=== PATIENT | male | born 1985 | race Caucasian/White ===

== ENCOUNTER 2017-03-02 10:57 | Inpatient (IN) | payer MEDICARE, MEDICAID ==
[~2017-03-02] VITALS: Ht 175.3 cm; Wt 107.8 kg
--- NOTE | 2017-03-02 11:21 | NUR ---
PT C/O NON-RADIATING CHEST PAIN DESCRIBED TIGHTNESS AND PROVOKED WITH MOVEMENT OR HEAVY LIFTING. PT ALSO C/O BUQ ABD PAIN AND NAUSEA W/O VOMIT OR DIARRHEA. PT IS AAOX4, RESP EVEN AND UNLAOBRED, RA. C/O COUGH AND STS THAT HE ALWAYS HAS A COUGH. PT REPORTS QUITING SMOKING 2 WKS AGO. PT ALS REPORTS SORE THROAT AND STS THAT HIS TINSILS ARE SWOLLEN, UPON VISUAL INSPECTION, TONSILS NOTED TO BE SLIGHTLY SWOLLEN. PT PLACED ON CARBONIZER TESTER. EKG PERFORMED IN TRIAGE
--- NOTE | 2017-03-02 11:31 | NUR ---
DR ORR AT BEDSIDE FOR MSE
--- NOTE | 2017-03-02 11:41 | NUR ---
IMPROVEMENT RN AT BEDSIDE FOR BLOOD DRAW
--- NOTE | 2017-03-02 11:44 | NUR ---
RADIOLOGY AT BEDSIDE FOR PCXR
[2017-03-02 11:53] LABS: BASOPHIL % 0.6 % (0-2); PLATELET COUNT 285 x10^3mcL (130-400); RED CELL DISTRIBUTION WIDTH 14.5 % (11.5-14.5)
[2017-03-02] MEDS ORDERED: LANTUS SOLOS100 U/M1 (11:54)
[2017-03-02 12:03] LABS: CALCIUM 9.5 mg/dL (8.5-10.1); CARBON DIOXIDE 25.6 mmol/L (21-32); CHLORIDE SERUM 103 mmol/L (98-107); CREATININE SERUM 0.8 mg/dL (0.7-1.3); GFR1 > 60 mL/min; GLUCOSE SERUM 170 mg/dL (74-106); POTASSIUM SERUM 4.2 mmol/L (3.5-5.1); SODIUM SERUM 137 mmol/L (136-145)
[2017-03-02 12:05] LABS: ALBUMIN 4.3 g/dL (3.4-5.0); ALKALINE PHOSPHATASE 66 U/L (46-116); ALT/SGPT 120 U/L (16-63); AST/SGOT 42 U/L (15-37); BILIRUBIN TOTAL 0.82 mg/dL (0.20-1.00); TOTAL PROTEIN, SERUM 7.3 g/dL (6.4-8.2)
--- NOTE | 2017-03-02 13:05 | NUR ---
PT REMAINS IN STABLE CONDITION. RESP EVEN AND UNLABORED, RA. VS STABLE AND WNL, NAD NOTED.
--- NOTE | 2017-03-02 13:11 | NUR ---
REPORT GIVEN TO FABRICIO FRANCISCO IN [facility] FOR CONTINUITY OF CARE; AWAITING ADMIT ORDERS
--- NOTE | 2017-03-02 13:23 | NUR ---
2ND PAGE SENT BY MT FOR ADMIT ORDERS
--- NOTE | 2017-03-02 13:39 | NUR ---
PT TRANSFERED TO [facility] AT THIS TIME
[2017-03-02 13:56] VITALS: BP 120/72
[2017-03-02 13:56] LABS: MAGNESIUM 1.9 mg/dL (1.8-2.4); PHOSPHOROUS 3.8 mg/dL (2.5-4.9)
[2017-03-02 14:00] LABS: CHOLESTEROL/HDL RATIO 6.7
--- NOTE | 2017-03-02 14:00 | NUR ---
RECEIVED PT FROM ED VIA JONNY. ORIENTED PT TO ROOM AND SURROUNDINGS. IV NOTED TO LAC PATENT AND INTACT. TELE 12 PLACED ON PT READING NSR. INSTRUCTED PT ON THE USE OF CALL LIGHT FOR ASSISTANCE. ENDORSED PT TO PRIMARY NURSE FABRICIO
--- NOTE | 2017-03-02 14:02 | NUR ---
MEDICAL STUDENTS IN TO SPEAK WITH PATIENT. WANTS TO EAT, PAGED DR FLORES.
--- NOTE | 2017-03-02 14:03 | NUR ---
SPOKE WITH DR FLORES FOR DIET ORDER.
[2017-03-02 14:04] LABS: FREE T4 1.1 ng/dL (0.76-1.46); FREE THYROXINE INDEX 2.2 ug/dL (1.4-4.5); T4(THYROXINE) 6.5 ug/dL (4.7-13.3)
[2017-03-02 14:06] LABS: T3 TOTAL 1.01 ng/mL
--- NOTE | 2017-03-02 14:38 | NUR ---
SPOKE WITH PONCHO OHARA TO GIVE FOOD AND NOT WAIT UNTIL DINNER. SANDWICH, PUDDING, DRINK GIVEN.
--- NOTE | 2017-03-02 15:00 | NUR ---
Patient resting comfortable in bed, denies pain, NS @ 100ml/hr to LAC started as ordered, ice water offered, needs attended. Update POC and treatments patient verbalize understand.
--- NOTE | 2017-03-02 16:43 | NUR ---
DR RICE IN TO SEE PATIENT. FAMILY MEMBERS BEDSIDE.
--- NOTE | 2017-03-02 16:46 | NUR ---
PATIENT SIT UP IN BED NO COMPLAINTS, FAMILY MEMBERS AT BEDSIDE, DR. RICE SEEN PT AT THIS TIME DISCUSS TX WITH PATIENT AND ANSWER QUESTIONS. BS CHECK 168 NO COVERAGE ORDERED. IV INTACT, CALL LIGHT WITHIN REACH.
[2017-03-02 16:58] LABS: UA SPECIFIC GRAVITY 1.025 (1.005-1.035); microscopic required? YES; urine erythrocyte NEGATIVE (NEGATIVE)
--- NOTE | 2017-03-02 17:02 | NUR ---
STREP CULTURE COLLECTED INSTRUCTED BY DR RICE
[2017-03-02 17:20] LABS: AMPHETAMINE QUAL UR NONE DETECTED (NEG <=1000)
--- NOTE | 2017-03-02 17:45 | NUR ---
PATIENT EATING DINNER NO COMPLAINTS, MOM AND SISTER REMAIN AT BEDSIDE, COLCHICINE AND MOTRIN GIVEN ORDERED, NEEDS ANTICIPATED. CALL LIGHT WITHIN REACH.
--- NOTE | 2017-03-02 19:55 | NUR ---
PT RECIEVED AAO REG RESP NO SOB,V/S STABLE,IV INFUSING WELL WITH THE SITE PATENT AND INTACT,NO CHEST PAIN OR SOB REPORTED AT THIS TIME,BED IN THE LOW POSITION AND CALL AND WILL CONTINUE TO MONITOR.
[2017-03-02 22:13] VITALS: BP 139/93
[2017-03-03 04:41] LABS: BASOPHIL % 0.4 % (0-2); PLATELET COUNT 275 x10^3mcL (130-400); RED CELL DISTRIBUTION WIDTH 14.4 % (11.5-14.5)
[2017-03-03 04:45] LABS: CALCIUM 8.8 mg/dL (8.5-10.1); CARBON DIOXIDE 25.7 mmol/L (21-32); CHLORIDE SERUM 105 mmol/L (98-107); CREATININE SERUM 0.8 mg/dL (0.7-1.3); GFR1 > 60 mL/min; GLUCOSE SERUM 157 mg/dL (74-106); MAGNESIUM 2.1 mg/dL (1.8-2.4); PHOSPHOROUS 4.8 mg/dL (2.5-4.9); POTASSIUM SERUM 3.6 mmol/L (3.5-5.1); SODIUM SERUM 140 mmol/L (136-145)
[2017-03-03 06:03] VITALS: BP 117/70
--- NOTE | 2017-03-03 06:41 | NUR ---
PT HAD A RESTING NIGHT MADE COMFORTABLE IN BED,KEPT CLEAN AND DRY TO TOUCH AND WILL CONTINUE TO MONITOR.
[2017-03-03 07:55] VITALS: BP 120/74
[2017-03-03 13:45] VITALS: BP 135/82
[2017-03-03 14:00] VITALS: BP 135/95
--- NOTE | 2017-03-03 16:59 | NUR ---
PT WANT TO TAKE SHOWER WITH DR'S ORDER. CALLED AND MADE CATTLE EXAMINER AWARE PT IS OFF TELE FOR A SHORT TIME.
--- NOTE | 2017-03-03 19:06 | NUR ---
PT NO COMPLAIN OF PAIN. PT HAD SHOWER PER ORDER. PT BREATHING ON RA, EVEN, UNLABORED. IV SITE PATENT, INTACT. IVF INFUSING WELL.
--- NOTE | 2017-03-03 19:39 | NUR ---
PT RECIEVED AAO REG RESP NO SOB,V/S STABLE,ON TELE MONITOR AND IN NSR NO ECTOPY OR CHEST PAIN AT THIS TIME,IV INFUSING WELL WITH DWANYE SITE PATENT AND INTACT,BED IN THE LOW POSITION AND LOCKED AND WILL CONTINUE TO MONITOR.
[2017-03-03 21:24] VITALS: BP 129/95
[2017-03-04 05:24] VITALS: BP 103/62
--- NOTE | 2017-03-04 06:32 | NUR ---
PT HAD A RESTING NIGHT V/S STABLE,KEPT CLEAN AND DRY TO TOUCH AND WILL CONTINUE TO MONITOR.
--- NOTE | 2017-03-04 07:30 | NUR ---
RECEIVED THE PATIENT AWAKE AND ORIENTED TO PERSON, PLACE AND TIME. DENIED PAIN AT THIS TIME. TELE # 12 READS SINUS RHYTHMS. IVF NS VIA H/L TO RFA.
--- NOTE | 2017-03-04 09:07 | NUR ---
DR. TRACY AND THE TEAM WERE MAKING ROUND TO SEE THE PATIENT; THE CARE PLAN WAS INFORMED TO THE PATIENT AND THE PATIENT AGREED WITH THE PLAN.
[2017-03-04 09:50] VITALS: BP 110/56
[2017-03-04] MEDS ORDERED: LIPITOR40 MG PO (11:19)
[2017-03-04] MEDS ORDERED: COLCHICINE0.6 M1 PO (11:21)
[2017-03-04] MEDS ORDERED: MOT800 PO (11:22)
[2017-03-04 12:04] VITALS: BP 110/56
--- NOTE | 2017-03-04 13:25 | NUR ---
DISCHARGE INSTRUCTION AND PRESCRIPTION WERE EXPLAINED THOROUGHLY AND HANDED TO THE PATIENT. H/L WAS REMOVED WITH CATH INTACT. TELE WAS REMOVED AND RETURNED. ID BAND WAS REMOVED. THE PATIENT WAS ESCORTED TO THE DISCHARGE OFFICE IN STABLE CONDITION. ALL BELONGINGS WERE SENT HOME WITH THE PATIENT UPON DISCHARGE.
== END 2017-03-04 13:25 | disposition home or self-care (01) | DRG 314 ==
LOC: ED 10:57 → DU 12:41
PROVIDERS: Emergency Medicine; ADMIT Family Medicine
DX: I31.9 Disease of pericardium, unspecified (principal); N17.0 Acute kidney failure with tubular necrosis; E10.65 Type 1 diabetes mellitus with hyperglycemia; E10.51 Type 1 diabetes mellitus with diabetic peripheral angiopathy without gangrene; E78.5 Hyperlipidemia, unspecified; R80.8 Other proteinuria; G60.0 Hereditary motor and sensory neuropathy; E66.9 Obesity, unspecified; Z79.4 Long term (current) use of insulin; Z68.35 Body mass index [BMI] 35.0-35.9, adult
CPT/HCPCS: 80307; 82962; 83880; 84439; J0561; J1815; J1885; J7030; Q0092

== ENCOUNTER 2017-04-11 21:35 | Emergency (ER) | payer MEDICARE, MEDICAID ==
[~2017-04-11 21:35] MED LIST: COLCHICINE0.6 M1 PO; LANTUS SOLOS100 U/M1; LIPITOR40 MG PO; MOT800 PO
[2017-04-11 21:41] VITALS: BP 130/83
== END 2017-04-11 22:27 | disposition home or self-care (01) ==
LOC: ED 21:35
DX: L03.011 Cellulitis of right finger (principal); E11.9 Type 2 diabetes mellitus without complications; Z76.0 Encounter for issue of repeat prescription
CPT/HCPCS: 90715

== ENCOUNTER 2017-04-13 13:28 | Emergency (ER) | payer MEDICARE, MEDICAID ==
[2017-04-13 18:09] VITALS: BP 148/89
== END 2017-04-13 18:09 | disposition home or self-care (01) ==
LOC: ED 13:28
DX: L03.011 Cellulitis of right finger (principal); E11.9 Type 2 diabetes mellitus without complications
CPT/HCPCS: J2001

== ENCOUNTER 2017-10-14 11:37 | Emergency (ER) | payer MEDICARE, MEDICAID ==
[2017-10-14 12:57] LABS: BASOPHIL % 0.1 % (0-2); PLATELET COUNT 260 x10^3mcL (130-400); RED CELL DISTRIBUTION WIDTH 14.4 % (11.5-14.5)
[2017-10-14 13:07] LABS: CALCIUM 9.7 mg/dL (8.5-10.1); CARBON DIOXIDE 26.5 mmol/L (21-32); CHLORIDE SERUM 101 mmol/L (98-107); CREATININE SERUM 0.9 mg/dL (0.7-1.3); GFR1 > 60 mL/min; GLUCOSE SERUM 184 mg/dL (74-106); POTASSIUM SERUM 3.7 mmol/L (3.5-5.1); SODIUM SERUM 138 mmol/L (136-145)
[2017-10-14 13:12] LABS: ALBUMIN 4.3 g/dL (3.4-5.0); ALKALINE PHOSPHATASE 69 U/L (46-116); ALT/SGPT 158 U/L (16-63); AST/SGOT 46 U/L (15-37); BILIRUBIN TOTAL 1.1 mg/dL (0.20-1.00)
[2017-10-14 13:34] VITALS: BP 125/75
== END 2017-10-14 14:42 | disposition home or self-care (01) ==
LOC: ED 11:37
PROVIDERS: Emergency Medicine
DX: J06.9 Acute upper respiratory infection, unspecified (principal); E11.9 Type 2 diabetes mellitus without complications; Z79.4 Long term (current) use of insulin
CPT/HCPCS: J7030; J7613; J7644; Q0092

== ENCOUNTER 2018-10-03 18:46 | Emergency (ER) | payer MEDICARE, MEDICAID ==
[~2018-10-03] VITALS: Ht 175.3 cm; Wt 108.0 kg
[2018-10-03 19:12] VITALS: Ht 175.3 cm; Wt 108.0 kg
[2018-10-03 20:33] LABS: BASOPHIL % 0.9 % (0-2); PLATELET COUNT 267 x10^3mcL (130-400)
[2018-10-03 20:36] LABS: RED CELL DISTRIBUTION WIDTH 14.6 % (11.5-14.5)
[2018-10-03 20:42] LABS: CARBON DIOXIDE 27.7 mmol/L (21-32); CHLORIDE SERUM 100 mmol/L (98-107); CREATININE SERUM 0.9 mg/dL (0.7-1.3); GFR1 > 60 mL/min; GLUCOSE SERUM 198 mg/dL (74-106); POTASSIUM SERUM 3.8 mmol/L (3.5-5.1); SODIUM SERUM 134 mmol/L (136-145)
[2018-10-03 20:46] LABS: ALKALINE PHOSPHATASE 86 U/L (46-116); ALT/SGPT 219 U/L (16-63); AST/SGOT 79 U/L (15-37); BILIRUBIN TOTAL 0.43 mg/dL (0.20-1.00); LIPASE 496 IU/L (73-393); TOTAL PROTEIN, SERUM 7.4 g/dL (6.4-8.2)
[2018-10-03 21:29] LABS: AMPHETAMINE QUAL UR NONE DETECTED (See below)
[2018-10-03 22:03] VITALS: BP 123/80
== END 2018-10-03 22:03 | disposition home or self-care (01) ==
LOC: ED 18:46
PROVIDERS: Emergency Medicine
DX: R07.89 Other chest pain (principal); R42 Dizziness and giddiness; R51 Headache; R00.2 Palpitations; E11.9 Type 2 diabetes mellitus without complications; Z71.6 Tobacco abuse counseling
CPT/HCPCS: 99406; J1885; Q0092

== ENCOUNTER 2018-10-17 10:07 | Emergency (ER) | payer MEDICARE, MEDICAID ==
[~2018-10-17] VITALS: Ht 175.3 cm; Wt 106.6 kg
[2018-10-17 10:15] VITALS: Ht 175.3 cm; Wt 106.6 kg
[2018-10-17 10:45] VITALS: BP 122/79
== END 2018-10-17 10:45 | disposition home or self-care (01) ==
LOC: ED 10:07
DX: J06.9 Acute upper respiratory infection, unspecified (principal); E11.9 Type 2 diabetes mellitus without complications; F17.210 Nicotine dependence, cigarettes, uncomplicated

== ENCOUNTER 2018-12-30 21:07 | Emergency (ER) | payer BC ==
[~2018-12-30] VITALS: Ht 175.3 cm; Wt 110.2 kg
[2018-12-30 21:12] VITALS: Ht 175.3 cm; Wt 110.2 kg
[2018-12-30 23:31] VITALS: BP 132/64
== END 2018-12-30 23:31 | disposition home or self-care (01) ==
LOC: ED 21:07
DX: J02.9 Acute pharyngitis, unspecified (principal); E11.9 Type 2 diabetes mellitus without complications

== ENCOUNTER 2020-01-08 11:01 | Emergency (ER) | payer BC ==
[~2020-01-08] VITALS: Ht 175.3 cm; Wt 105.7 kg
[2020-01-08 11:20] VITALS: Ht 175.3 cm; Wt 105.7 kg
[2020-01-08 12:03] LABS: BASOPHIL % 0.5 % (0-2); PLATELET COUNT 265 x10^3mcL (130-400); RED CELL DISTRIBUTION WIDTH 13.7 % (11.5-14.5)
[2020-01-08 12:09] LABS: CALCIUM 9.2 mg/dL (8.5-10.1); CARBON DIOXIDE 26.6 mmol/L (21-32); CHLORIDE SERUM 101 mmol/L (98-107); CREATININE SERUM 0.8 mg/dL (0.7-1.3); GFR1 > 60 mL/min; GLUCOSE SERUM 176 mg/dL (74-106); SODIUM SERUM 138 mmol/L (136-145)
[2020-01-08 12:13] LABS: ALBUMIN 4.1 g/dL (3.4-5.0); ALKALINE PHOSPHATASE 70 U/L (46-116); ALT/SGPT 141 U/L (16-63); AST/SGOT 56 U/L (15-37); BILIRUBIN TOTAL 0.7 mg/dL (0.20-1.00); LIPASE 162 IU/L (73-393); TOTAL PROTEIN, SERUM 7.5 g/dL (6.4-8.2)
[2020-01-08 13:26] VITALS: BP 136/63
== END 2020-01-08 13:26 | disposition home or self-care (01) ==
LOC: ED 11:01
PROVIDERS: Emergency Medicine
DX: K29.70 Gastritis, unspecified, without bleeding (principal); K59.00 Constipation, unspecified; F17.210 Nicotine dependence, cigarettes, uncomplicated; E11.40 Type 2 diabetes mellitus with diabetic neuropathy, unspecified
CPT/HCPCS: 36415; 99406; Q0162

== ENCOUNTER 2020-09-01 09:24 | Emergency (ER) | payer BC ==
[~2020-09-01] VITALS: Ht 175.3 cm; Wt 103.9 kg
[2020-09-01 09:32] VITALS: Ht 175.3 cm; Wt 103.9 kg
[2020-09-01 10:43] VITALS: BP 129/95
== END 2020-09-01 10:43 | disposition home or self-care (01) ==
LOC: ED 09:24
DX: L02.412 Cutaneous abscess of left axilla (principal); E11.40 Type 2 diabetes mellitus with diabetic neuropathy, unspecified
CPT/HCPCS: J2001

== ENCOUNTER 2020-11-27 14:29 | Emergency (ER) | payer BC | END 2020-11-27 17:02 | disposition left against medical advice (07) | LOC: ED 14:29 | DX: Z53.21 Procedure and treatment not carried out due to patient leaving prior to being seen by health care provider (principal) ==